=== PATIENT | male | born 1955 | race Caucasian/White ===

== ENCOUNTER 2020-07-18 08:56 | Emergency (ER) | payer BC ==
[~2020-07-18] VITALS: Ht 190.5 cm; Wt 92.8 kg
[2020-07-18 11:15] VITALS: BP 119/70
== END 2020-07-18 11:17 | disposition home or self-care (01) ==
LOC: ED 10:07
DX: I80.01 Phlebitis and thrombophlebitis of superficial vessels of right lower extremity (principal); M79.604 Pain in right leg; I10 Essential (primary) hypertension; E11.9 Type 2 diabetes mellitus without complications
CPT/HCPCS: 99284